=== PATIENT | female | born 1945 | race Caucasian/White ===

== ENCOUNTER → 2022-07-01 12:44 | Outpatient (REF) | payer MEDICARE, SELFPAY ==
--- NOTE | 2022-07-01 13:00 | CA_ITS ---
Transthoracic Echocardiogram Patient (Last, First, Middle): Hannah Turner, Gender: Female Date of : 1945 Age: 77 Procedure Date: 07/01/2022 Procedure Type: Transthoracic Echocardiogram Location: [facility] Height: 165.1 cm Weight: 63.96 kg BSA: 1.71 m2 Heart Rate: 61 bpm BP: 142 / 70 mmHg Return Agent Airport: [place] Referring MD: Lisa Cazares MD Architectural Sales Consultant: Keith Powell MD Symptoms: G45.9 TIA Study Quality: Adequate ECG Rhythm: Sinus Conclusions: - 1. Normal LV systolic function with grade 1 diastolic dysfunction 2. Normal cardiac valvular Doppler 3. Moderate protruding plaque noted in the arch of the aorta 4. No gross pericardial effusion Findings Left Ventricle Normal left ventricular size, thickness, and systolic function. The visually estimated ejection fraction is between 65-70%. Spectral Doppler is indicative of an impaired relaxation filling pattern. E/E prime ratio is <8, consistent with normal filling pressures. Evidence suggests grade I (mild) diastolic dysfunction. Peak GLS is -18.6%, within normal limits. Right Ventricle Normal right ventricular cavity size and systolic function. Atria Both atria are normal in size. Interatrial shunt cannot be excluded. Aortic Valve Normal aortic valve structure and function. There is no aortic valve stenosis. There is no aortic valve regurgitation. Mitral Valve Normal mitral valve structure and function. There is trace mitral valve regurgitation. There is no mitral valve stenosis. Pulmonic Valve The pulmonic valve is likely normal. Tricuspid Valve Likely normal tricuspid valve structure and function. Tricuspid regurgitation envelope is inadequate for calculation of right ventricular systolic pressure. Normal right atrial pressure. Great Vessels The pulmonary artery was not well visualized. Moderate plaque is seen in the arch. Venous The inferior vena cava is mildly dilated and collapses greater than 50% with inspiration. Pericardium/Pleural There is no evidence of pericardial effusion. Prior Study Comparison Changes noted compared to prior study dated: 03/22/2019. Moderate protruding plaque noted in the arch of the aorta. Grade 1 diastolic dysfunction noted Recommendations, Care & Conclusions Consider a BILL if clinically appropriate. Measurements 2D Linear Measurements IVSd: 1.01 0.6-0.9/0.6-1.0 cm LVIDd: 3.98 3.9-5.3/4.2-5.9 cm LVIDd Index: 2.33 2.4-3.2/2.2-3.1 cm/m2 LVIDs: 2.38 2.0-3.6 cm LVPWd: 0.73 0.7-1.1 cm LA Diam: 3.40 2.7-3.8/3.0-4.0 cm LAIDs Index: 1.99 1.5-2.3 cm/m2 LV Mass: 128.66 67-162/88-224 g LV Mass Index: 75.24 43-95/49-115 g/m2 LVOT Diam: 2.30 3.0+(-)1.3 cm 2D Systolic Function EF 4C: 70.10 >55% EF 2C: 78.40 >55% EF BiP: 75.20 >55% Mitral Valve MV Pk E: 0.60 MV PK A: 0.72 MV Decel Time: 282.00 E/A: 0.80 E'Lateral: 6.96 E'Medial: 5.66 E/E' Med: 10.70 E/E' Lat: 8.70 PHT: 83.00 MVA PHT: 2.65 Decel Dougherty: 2.14 Aortic Valve AoV Pk Garth: 1.26 AoV Pk Grad: 6.00 ROSALVA: 3.69 LVOT LVOT Pk Garth: 1.12 LVOT Mn Garth: 0.79 LVOT VTI: 0.27 LVOT Pk Grad: 5.00 LVOT Mn Grad: 3.00 LVOT Diam: 2.30 LVOT Area: 4.15 Diastolic Function MV Pk E: 0.60 MV Pk A: 0.72 E/A: 0.80 E'Medial: 5.66 E/E' Med: 10.70 E' Laterial: 6.96 E/E' Lat: 8.70 Right Ventricle TAPSE (mm): 21.20 TVS' Garth: 12.40 Tricuspid Valve RA Press: 3.00 Great Vessels Aorta Sinus of Valsalva: 3.30 2.0-3.5 cm Ao Asc: 3.30 2.1-3.4 cm Pulmonary Valve PV Pk Garth: 0.97 Peak PV Grad: 4.00 Updated in Other Vendor System with Status of Final Keith Powell MD electronically signed on 07/02/2022 9:33:18 AM with status of Final
== END ==
LOC: HO.CARD 12:44
PROVIDERS: PCP Internal Medicine; Visit Provider Internal Medicine
DX: G45.9 Transient cerebral ischemic attack, unspecified (principal)
CPT/HCPCS: 93306; 93356